=== PATIENT | male | born 1985 | race Two or more races ===

== ENCOUNTER 2019-07-10 14:05 | Inpatient (IN) | payer OTHER ==
[~2019-07-10] VITALS: Ht 177.8 cm; Wt 104.0 kg
[2019-07-10] MEDS ORDERED: ASPIRIN 325MG EC TABLET PO ONE ×2 (16:30→18:00)
[2019-07-10 17:26] LABS: BASOPHILS % 0.7 % (0.0-2.0); EOSINOPHILS % 1.2 % (0.0-5.0); HEMATOCRIT. 37.9 % (42.0-52.0); HEMOGLOBIN. 13.3 g/dL (14.0-18.0); LYMPHOCYTES % 37.3 % (20.0-50.0); MEAN CORPUSCULAR HEMOGLOBIN 30.8 pg (28.0-32.0); MEAN CORPUSCULAR VOLUME 87.5 fL (80.0-94.0); MEAN PLATELET VOLUME 9.3 fl (7.4-10.4); MONOCYTES % 6.2 % (2.0-8.0); NEUTROPHILS % 54.6 % (40.0-76.0); PLATELET 254 x1000/uL (130-400); RED BLOOD CELL COUNT 4.34 mill/uL (4.7-6.1); RED CELL DISTRIBUTION WIDTH 13.7 % (11.6-14.6)
[2019-07-10 17:28] LABS: CHLORIDE 107 mEq/L (98-107)
[2019-07-10 17:32] LABS: ETHANOL BLOOD < 10 mg/dL
[2019-07-10 22:20] VITALS: BP 137/94
[2019-07-10] MEDS ORDERED: INSLIS SUBCUT (23:09)
[2019-07-10] MEDS ORDERED: INSU100I28 SQ (23:09)
[2019-07-11 00:36] VITALS: BP 108/64
[2019-07-11 04:00] VITALS: BP 113/73
[2019-07-11] MEDS ORDERED: INSULIN LISPRO 100 UNITS/ML SUBCUT SCH ×2 (07:20→12:50)
[2019-07-11 08:00] VITALS: BP 135/90
[2019-07-11 08:18] LABS: CHLORIDE 108 mEq/L (98-107)
[2019-07-11] MEDS ORDERED: DEXTROSE 50% WATER 50ML SYRINGE IV PRN (08:45)
[2019-07-11] MEDS ORDERED: ASPIRIN 325MG EC TABLET PO SCH (09:00)
[2019-07-11 12:00] VITALS: BP 121/81
[2019-07-11] MEDS ORDERED: BLOOD SUGAR DIAGNOSTIC STRIP TEST SCH (12:20)
[2019-07-11 15:44] VITALS: BP 121/81
[2019-07-11 16:00] VITALS: BP 109/69
[2019-07-11] MEDS ORDERED: ATORVASTATIN CALCIUM 40MG TABLET PO SCH (21:00)
[2019-07-11] MEDS ORDERED: INSULIN GLARGINE UD 100 UNITS/ML SYR SUBCUT SCH (22:00)
== END 2019-07-11 16:27 | disposition home or self-care (01) | DRG 69 ==
LOC: ER 14:05 → 6WST 20:58 → ENRESERV 21:31
PROVIDERS: ADMIT Internal Medicine; ATTEND Internal Medicine
DX: G45.9 Transient cerebral ischemic attack, unspecified (principal); E11.9 Type 2 diabetes mellitus without complications; D64.9 Anemia, unspecified; E66.9 Obesity, unspecified; E78.5 Hyperlipidemia, unspecified; Z71.3 Dietary counseling and surveillance; Z88.1 Allergy status to other antibiotic agents; Z68.32 Body mass index [BMI] 32.0-32.9, adult; Z86.73 Personal history of transient ischemic attack (TIA), and cerebral infarction without residual deficits
CPT/HCPCS: 36415; 70551; 71045; 80048; 80061; 80320; 82962; 84484; 93005; 93306; 99285; J1815; G0480